=== PATIENT | female | born 1970 | race Caucasian/White ===

== ENCOUNTER 2017-03-01 18:04 | Emergency (ER) | payer OTHER ==
[~2017-03-01] VITALS: Ht 162.6 cm; Wt 86.2 kg
[2017-03-01 19:00] VITALS: BP 123/77
--- NOTE | 2017-03-01 19:25 | PHYS DOC ---
Past Medical History Past Medical History: Other Additional Past Medical Histor: Raynauds Past Surgical History: Appendectomy, , Other Additional Past Surgical Histo: Intestinal surgery Alcohol Use: None Drug Use: None Adult General Chief Complaint Chief Complaint: LACERATION/AVULSION [facility] HPI Patient is a 46 year old pleasant female who was cooking using a informaticist and avulsed some skin radial aspect of her left thumb. She attempted direct pressure was for the last 60 minutes with not improving in the bleeding. He also complained of increasing of a throbbing pain is gotten progressively worsened. She denied any dizziness nausea or near syncopal event.. She denies any bleeding dyscrasias or prior bleeding issues. Review of Systems Review of Systems Constitutional: Denies fever or chills [] Cardiovascular: No additional information not addressed in HPI [] GI: Denies abdominal pain, nausea, vomiting Musculoskeletal: Denies back pain or joint pain [] Integument: Denies rash or skin lesions [] Neurologic: Denies headache, focal weakness or sensory changes [] Current Medications Current Medications Current Medications Medications (Trade) Dose Ordered Sig/Lory Start Time Stop Time Status Last Admin Dose Admin Acetaminophen/ Hydrocodone Bitart (Lortab 5/325) 2 tab 1X ONCE 03/01/17 19:30 03/01/17 19:31 DC 03/01/17 19:54 2 TAB Gelatin (Gelfoam Size 100) 1 each 1X ONCE 03/01/17 19:30 03/01/17 19:31 DC 03/01/17 19:54 1 EACH Allergies Allergies Allergies Coded Allergies Type Severity Reaction Last Updated Verified aspirin Allergy Mild VOMITING 02/13/14 Yes Physical Exam Physical Exam Vital signs reviewed within normal limits Constitutional: Well developed, well nourished, no acute distress, non-toxic appearance. [] Patient is uncomfortable holding her thumb in her hand with direct pressure Cardiovascular:Heart rate regular rhythm, no murmur [] Lungs & Thorax: Bilateral breath sounds clear to auscultation [] Skin: Warm, dry, no erythema, no rash. [] Back: No tenderness, no CVA tenderness. [] Extremities: No tenderness, no cyanosis, no clubbing, ROM intact, no edema. Small avulsion injury noted on the radial aspect of the left thumb measuring 1 cm by half centimeter in width and length actively bleeding. No foreign body noted no laceration to repair Neurologic: Alert and oriented X 3, normal motor function, normal sensory function, no focal deficits noted. [] Psychologic: Affect normal, judgement normal, mood normal. This patient is anxious Current Patient Data Vital Signs Vital Signs Date Time Temp Pulse Resp B/P (MAP) Pulse Ox O2 Delivery O2 Flow Rate FiO2 03/01/17 19:54 20 98 Room Air 03/01/17 19:00 98.2 94 98.2 EKG EKG [] Radiology/Procedures Radiology/Procedures [] Course & Med Decision Making Course & Med Decision Making Pertinent Labs and Imaging studies reviewed. (See chart for details) [] Patient is pleasant but has a bleeding avulsion injury to the radial aspect of the thumb that was bleeding upon arrival. It was dressed with Gelfoam, a pressure dressing and direct pressure which did reduce the pain bleeding. Patient has no foreign body, no laceration to repair. Patient provided Gelfoam as well as pain medications to go home. Asked to follow-up with her primary care doctor next 12-24 hours for wound check bleeding still continued. Impression: Avulsion injury skin disposition: To her primary care doctor for when necessary care. Precautions given for infection and bleeding Dragon Disclaimer Dragon Disclaimer This electronic medical record was generated, in whole or in part, using a voice recognition dictation system. Departure Departure Impression: Primary Impression: Avulsion, skin Disposition: 01 HOME, SELF-CARE Condition: IMPROVED Referrals: SHERRY ALMARAZ DO (PCP) Patient Instructions: Finger Avulsion, Wound Care, [id number] Additional Instructions: Asked to return for any signs of infection or difficulty controlling bleeding with direct pressure or bandages provided. ELIO JENKINS MD Mar 01, 2017 19:25
[2017-03-01] MEDS ORDERED: HYDROcodone/APAP 5/325MG 1 TAB TABLET PO ONE (19:30)
[2017-03-01] MEDS ORDERED: GELATIN SPONGE SIZE 100. TP ONE (19:30)
== END 2017-03-01 20:15 | disposition home or self-care (01) ==
LOC: ER 18:04
DX: S61.102A Unspecified open wound of left thumb with damage to nail, initial encounter (principal); X58.XXXA Exposure to other specified factors, initial encounter; Y93.89 Activity, other specified; Y92.89 Other specified places as the place of occurrence of the external cause; Y99.8 Other external cause status
CPT/HCPCS: 99283

== ENCOUNTER 2018-06-19 10:55 | Emergency (ER) | payer BC ==
[~2018-06-19] VITALS: Ht 165.1 cm; Wt 86.2 kg
[2018-06-19] MEDS ORDERED: IV NORMAL SALINE 1000ML BAG 1,000 ML IV ONE (11:30)
[2018-06-19 11:41] LABS: BASO % 1 % (0-3); EOS # 0.1 x10^3/uL (0.0-0.7); EOS % 2 % (0-3); HEMATOCRIT 38.4 % (36.0-47.0); HEMOGLOBIN 13.4 g/dL (12.0-15.5); LYMPH # 1.9 x10^3/uL (1.0-4.8); LYMPH % 28 % (24-48); MEAN CORPUSCULAR HEMOGLOBIN 32 pg (25-35); MEAN CORPUSCULAR HGB CONC 35 g/dL (31-37); MEAN CORPUSCULAR VOLUME 92 fL (79-100); MONO # 0.5 x10^3/uL (0.0-1.1); MONO % 8 % (0-9); NEUT # 4.3 x10^3uL (1.8-7.7); NEUT % 62 % (31-73); PLATELET COUNT 286 x10^3/uL (140-400); RED BLOOD COUNT 4.18 x10^6/uL (3.50-5.40); RED CELL DISTRIBUTION WIDTH 14.5 % (11.5-14.5); WHITE BLOOD COUNT 6.9 x10^3/uL (4.0-11.0)
[2018-06-19] MEDS ORDERED: MECLIZINE HCL 12.5 MG TABLET. PO ONE (11:45)
[2018-06-19 11:51] LABS: CALCIUM 9.4 mg/dL (8.5-10.1); CREATININE 0.9 mg/dL (0.6-1.0); GFR 66.8; POTASSIUM 3.8 mmol/L (3.5-5.1)
--- NOTE | 2018-06-19 11:57 | PHYS DOC ---
Past Medical History Past Medical History: Other Additional Past Medical Histor: Raynauds Past Surgical History: Appendectomy, , Other Additional Past Surgical Histo: Intestinal surgery Alcohol Use: None Drug Use: None Adult General Chief Complaint Chief Complaint: DIZZY/LIGHT HEADED HPI HPI 47-year-old female presenting the emergency department today with a dizziness and spinning of the room started about an hour ago. She was working when this happened. She denies any facial droop, difficulty speaking, difficulty walking or unilateral numbness weakness or tingling. Patient reports a chronically asymmetric face, but demonstrates good strength in the frontal muscles of the face and is able to close her eyes with good strength. She reports she has bilateral blurred vision. She reports normally she wears glasses but unfortunately a dog ate her glasses. She reports right leg pain without swelling or erythema. She also developed chest pain over the past 3-4 hours that is a sharp mild intermittent pain that comes and goes. She denies history of high blood pressure high cholesterol. She denies diabetes. She denies smoking. She denies hemoptysis or recent immobilization or surgery. Review of systems is negative for abdominal pain nausea vomiting fevers chills diaphoresis. All other review of systems is negative unless otherwise noted in history of present illness. 47-year-old female presenting to the emergency department today with dizziness chest pain and unilateral leg swelling and blurred vision. On arrival she is afebrile with normal heart rate. Saturating well on room air. Blood pressure. On examination she has good strength in all extremities. She has a chronic asymmetry of the face but demonstrates no weakness of the face. Otherwise cranial nerves are intact. Regular rate and rhythm. Abdomen is soft and nontender. The legs are bilateral and appearance. There is no erythema. Mild tenderness of the calf. Otherwise unremarkable. EKG obtained and reviewed by myself shows sinus rhythm with a regular rate. ST segments congruent. Not suggestive of ACS. Ultrasound of the legs ordered along with d-dimer and blood work. Head CT ordered as well. Workup is unremarkable. The patient has been examined and was not found to have an emergency medical condition. The patient was then discharged home in stable condition to follow up with their primary care physician over the next 2-3 days. They were to return if their symptoms worsened or if they were concerned for any reason. They were also instructed to return to the emergency department if they were unable to get the recommended and appropriate follow-up. [id number] discharge instructions and return precautions were given. Patient's questions were answered to their satisfaction. Patient is comfortable with plan. HEART SCORE History Slightly suspicious 0 Moderately suspicious +1 Highly suspicious +2 EKG 1 point: No ST depression but LBBB, LVH, repolarization changes (ex: digoxin); 2 points: ST depression/elevation not due to LBBB, LVH, or digoxin Normal 0 Non-specific repolarization disturbance +[address] depression +2 Age <45 0 45-65 +1 65 +2 Risk factors Risk factors: HTN, hypercholesterolemia, DM, obesity (BMI >30 kg/m), smoking (current, or smoking cessation 3 mo), positive family history (parent or sibling with CVD before age 65); atherosclerotic disease: prior [place], PCI/CABG, CVA/TIA, or peripheral arterial disease No known risk factors 0 1-2 risk factors +1 3 risk factors or history of atherosclerotic disease +2 Initial troponin Use local assays and corresponding cutoffs normal limit 0 1-2 normal limit +1 >2 normal limit +2 Total 1 point Review of Systems Review of Systems SEE ABOVE. Current Medications Current Medications Current Medications Medications (Trade) Dose Ordered Sig/Lory Start Time Stop Time Status Last Admin Dose Admin Meclizine HCl (Antivert) 25 mg 1X ONCE 06/19/18 11:45 06/19/18 11:46 DC 06/19/18 11:55 25 MG Sodium Chloride 1,000 ml @ 1,000 mls/hr 1X ONCE 06/19/18 11:30 06/19/18 12:29 DC 06/19/18 11:35 1,000 MLS/HR Allergies Allergies Allergies Coded Allergies Type Severity Reaction Last Updated Verified aspirin Allergy Mild VOMITING 02/13/14 Yes Physical Exam Physical Exam SEE ABOVE Constitutional: Well developed, well nourished, no acute distress, non-toxic appearance. [] HENT: Normocephalic, atraumatic, bilateral external ears normal, oropharynx moist, no oral exudates, nose normal. [] Eyes: PERRLA, EOMI, conjunctiva normal, no discharge. [] Neck: Normal range of motion, no tenderness, supple, no stridor. [] Cardiovascular:Heart rate regular rhythm, no murmur [] Lungs & Thorax: Bilateral breath sounds clear to auscultation [] Abdomen: Bowel sounds normal, soft, no tenderness, no masses, no pulsatile masses. [] Skin: Warm, dry, no erythema, no rash. [] Back: No tenderness, no CVA tenderness. [] Extremities: No tenderness, no cyanosis, no clubbing, ROM intact, no edema. [] Neurologic: Mental status: Awake oriented and alert x3 Cranial nerves: Extraocular movements intact, eyebrows tonia bilaterally, smile symmetric, uvula elevation nl, shoulder shrug intact bilaterally, tongue protrusion normal DTRs: 2+ Sensation: equal and normal in all extremities Strength: 5/5 in upper and lower extremities bilaterally Psychologic: Affect normal, judgement normal, mood normal. [] Current Patient Data Vital Signs Vital Signs Date Time Temp Pulse Resp B/P (MAP) Pulse Ox O2 Delivery O2 Flow Rate FiO2 06/19/18 11:20 98.3 81 16 135/68 (90) 98 Room Air 98.3 Lab Values Laboratory Tests Test 06/19/18 11:30 06/19/18 12:30 06/19/18 13:02 White Blood Count 6.9 x10^3/uL (4.0-11.0) Red Blood Count 4.18 x10^6/uL (3.50-5.40) Hemoglobin 13.4 g/dL (12.0-15.5) Hematocrit 38.4 % (36.0-47.0) Mean Corpuscular Volume 92 fL (79-100) Mean Corpuscular Hemoglobin 32 pg (25-35) Mean Corpuscular Hemoglobin Concent 35 g/dL (31-37) Red Cell Distribution Width 14.5 % (11.5-14.5) Platelet Count 286 x10^3/uL (140-400) Neutrophils (%) (Auto) 62 % (31-73) Lymphocytes (%) (Auto) 28 % (24-48) Monocytes (%) (Auto) 8 % (0-9) Eosinophils (%) (Auto) 2 % (0-3) Basophils (%) (Auto) 1 % (0-3) Neutrophils # (Auto) 4.3 x10^3uL (1.8-7.7) Lymphocytes # (Auto) 1.9 x10^3/uL (1.0-4.8) Monocytes # (Auto) 0.5 x10^3/uL (0.0-1.1) Eosinophils # (Auto) 0.1 x10^3/uL (0.0-0.7) Basophils # (Auto) 0.0 x10^3/uL (0.0-0.2) D-Dimer (Zoila) 0.34 ug/mlFEU (0.00-0.50) Sodium Level 141 mmol/L (136-145) Potassium Level 3.8 mmol/L (3.5-5.1) Chloride Level 104 mmol/L (98-107) Carbon Dioxide Level 29 mmol/L (21-32) Anion Gap 8 (6-14) Blood Urea Nitrogen 9 mg/dL (7-20) Creatinine 0.9 mg/dL (0.6-1.0) Estimated GFR (Cockcroft-Gault) 66.8 BUN/Creatinine Ratio 10 (6-20) Glucose Level 132 mg/dL (70-99) H Calcium Level 9.4 mg/dL (8.5-10.1) Total Bilirubin 0.2 mg/dL (0.2-1.0) Aspartate Amino Transferase (AST) 18 U/L (15-37) Alanine Aminotransferase (ALT) 23 U/L (14-59) Alkaline Phosphatase 87 U/L (46-116) Troponin I Quantitative < 0.017 ng/mL (0.000-0.055) Total Protein 7.7 g/dL (6.4-8.2) Albumin 3.7 g/dL (3.4-5.0) Albumin/Globulin Ratio 0.9 (1.0-1.7) L Urine Collection Type Unknown Urine Color Yellow Urine Clarity Clear Urine pH 5.5 Urine Specific [place] <=1.005 Urine Protein Negative mg/dL (NEG-TRACE) Urine Glucose (UA) Negative mg/dL (NEG) Urine Ketones (Stick) Negative mg/dL (NEG) Urine Blood Small (NEG) Urine Nitrite Negative (NEG) Urine Bilirubin Negative (NEG) Urine Urobilinogen Dipstick 0.2 mg/dL (0.2 mg/dL) Urine Leukocyte Esterase Moderate (NEG) Urine RBC 3-5 /HPF (0-2) Urine WBC >40 /HPF (0-4) Urine Squamous Epithelial Cells Mod /LPF Urine Bacteria Many /HPF (0-FEW) POC Urine HCG, Qualitative Hcg negative (Negative) Laboratory Tests 06/19/18 11:30 Laboratory Tests 06/19/18 11:30 EKG EKG [] Radiology/Procedures Radiology/Procedures [] Course & Med Decision Making Course & Med Decision Making Pertinent Labs and Imaging studies reviewed. (See chart for details) [] Dragon Disclaimer Dragon Disclaimer This electronic medical record was generated, in whole or in part, using a voice recognition dictation system. Departure Departure Impression: Primary Impression: Chest pain Additional Impressions: Leg pain Lightheaded Disposition: HOME, SELF-CARE Condition: STABLE Referrals: SHERRY ALMARAZ DO (PCP) Patient Instructions: Dizziness Additional Instructions: Thank you for allowing us to participate in your care today. Return to the emergency department you have any new or worsening symptoms, or if you are concerned for any reason. Return to emergency department if you have any new or concerning symptoms including but not limited to fever, chills, nausea, vomiting, intractable pain, any new rashes, chest pain, shortness of air , uncontrolled bleeding, difficulty breathing, and/or vision loss. Follow up with your primary care physician within 3 days. Call your Primary Doctor tomorrow and inform them of your visit today. If you do not have a primary care provider we are happy to provide you with a list of our primary care providers contact information. This condition should be evaluated by your primary care physician and any recommended consulting services for continued management within 2-3 days after discharge. If at any time, you are having difficulty getting into your primary care doctor or a specialist, return to the emergency department. Problem Qualifiers LEAH CERVANTES MD Jun 19, 2018 11:57
[2018-06-19 11:58] LABS: ALBUMIN 3.7 g/dL (3.4-5.0); ALBUMIN/GLOBULIN RATIO 0.9 (1.0-1.7); TOTAL BILIRUBIN 0.2 mg/dL (0.2-1.0); TOTAL PROTEIN 7.7 g/dL (6.4-8.2)
--- NOTE | 2018-06-19 12:34 | RAD ---
EXAM: Bilateral lower extremity venous Doppler sonogram. HISTORY: Pain and swelling. TECHNIQUE: Tian scale and color Doppler sonographic evaluation of the bilateral lower extremity veins with spectral waveform analysis was performed. FINDINGS: There is normal color flow, normal compressibility and there are normal spectral waveforms in the common femoral, superficial femoral, popliteal, posterior tibial and greater saphenous veins. IMPRESSION: No Doppler evidence of lower extremity deep venous thrombosis. Electronically signed by: Radha Cha MD (06/19/2018 12:30 PM) [place] [id number]
--- NOTE | 2018-06-19 12:42 | RAD ---
EXAM: Head CT without contrast. HISTORY: Dizziness when turning head. TECHNIQUE: Computed tomographic images of the head were obtained without contrast. *One or more of the following individualized dose reduction techniques were utilized for this examination: 1. Automated exposure control. 2. Adjustment of the mA and/or kV according to patient size. 3. Use of iterative reconstruction technique. COMPARISON: None. FINDINGS: There is no acute or subacute extra-axial or intraparenchymal hemorrhage. There is no mass effect or midline shift. There is no hydrocephalus. The mcbride-white matter differentiation pattern is intact. There is moderate ethmoid and mild maxillary sinus mucosal thickening with suspected small maxillary sinus mucous retention cysts. The mastoid air cells are clear. There is a tiny benign osseous excrescence along the inner table of the right frontal bone. There is no suspicious osseous lesion. IMPRESSION: No acute intracranial findings. Electronically signed by: Radha Cha MD (06/19/2018 12:39 PM) [id number]
[2018-06-19 13:11] LABS: BILIRUBIN,URINE NEGATIVE (NEG); CLARITY,URINE CLEAR; COLOR,URINE YELLOW; NITRITE,URINE NEGATIVE (NEG); PH,URINE 5.5; PROTEIN,URINE NEGATIVE (NEG-TRACE); UROBILINOGEN,URINE 0.2 mg/dL (0.2 mg/dL)
[2018-06-19 13:34] VITALS: BP 95/62
[2018-06-19 13:35] LABS: BACTERIA,URINE MANY /HPF (0-FEW); SQUAMOUS EPITHELIAL CELL,UR MOD /LPF; WBC,URINE >40 /HPF (0-4)
--- NOTE | 2018-06-19 14:18 | EKG ---
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
== END 2018-06-19 14:00 | disposition home or self-care (01) ==
LOC: ER 10:55
DX: R42 Dizziness and giddiness (principal); R07.89 Other chest pain; H53.8 Other visual disturbances; M79.604 Pain in right leg; Z90.89 Acquired absence of other organs; Z98.890 Other specified postprocedural states; Z88.6 Allergy status to analgesic agent
CPT/HCPCS: 36415; 70450; 80053; 81001; 81025; 84484; 85025; 85379; 87086; 93005; 93970; 96360; 99285; J7030; J8597; 87186

== ENCOUNTER 2021-11-09 13:52 | Emergency (ER) | payer BC ==
[~2021-11-09] VITALS: Ht 165.1 cm; Wt 80.0 kg
[2021-11-09] MEDS ORDERED: KETOROLAC 15 MG/ML VIAL. IVP ONE (14:15)
[2021-11-09 14:21] LABS: BASO % 0 % (0-3); EOS # 0.2 x10^3/uL (0.0-0.7); EOS % 2 % (0-3); HEMATOCRIT 36.8 % (36.0-47.0); HEMOGLOBIN 12.1 g/dL (12.0-15.5); LYMPH # 2.8 x10^3/uL (1.0-4.8); LYMPH % 35 % (24-48); MEAN CORPUSCULAR HEMOGLOBIN 30 pg (25-35); MEAN CORPUSCULAR HGB CONC 33 g/dL (31-37); MEAN CORPUSCULAR VOLUME 92 fL (79-100); MONO # 0.7 x10^3/uL (0.0-1.1); MONO % 8 % (0-9); NEUT # 4.5 x10^3/uL (1.8-7.7); NEUT % 55 % (31-73); PLATELET COUNT 309 x10^3/uL (140-400); RED BLOOD COUNT 3.99 x10^6/uL (3.50-5.40); RED CELL DISTRIBUTION WIDTH 14.8 % (11.5-14.5); WHITE BLOOD COUNT 8.2 x10^3/uL (4.0-11.0)
--- NOTE | 2021-11-09 14:32 | RAD ---
EXAM: Chest, single view. HISTORY: Chest pain. COMPARISON: None. FINDINGS: A frontal view of the chest obtained. There is no infiltrate, pleural effusion or pneumotho rax. The heart is normal in size. IMPRESSION: No acute pulmonary finding. Electronically signed by: Radha Cha MD (11/09/2021 2:30 PM) [id number]
[2021-11-09 14:34] LABS: CREATININE 0.8 mg/dL (0.6-1.0); GFR 75.3; POTASSIUM 4.4 mmol/L (3.5-5.1)
[2021-11-09 14:39] LABS: ALBUMIN 3.6 g/dL (3.4-5.0); ALBUMIN/GLOBULIN RATIO 0.9 (1.0-1.7); MAGNESIUM 2.1 mg/dL (1.8-2.4); TOTAL BILIRUBIN 0.4 mg/dL (0.2-1.0); TOTAL PROTEIN 7.6 g/dL (6.4-8.2)
--- NOTE | 2021-11-09 14:53 | PHYS DOC ---
Past Medical History Past Medical History: Other Additional Past Medical Histor: Raynauds Past Surgical History: Additional Past Surgical Histo: Intestinal surgery Smoking Status: Never Smoker Alcohol Use: None Drug Use: None General Adult EDM: Chief Complaint: CHEST PAIN HPI: HPI: Patient is a 51 year old female who presents with central low chest pain that began 10 minutes prior to calling EMS. Patient reports her pain is a constant 6/10 that has intermittent waves of 8/10 pain that is sharp in nature and nonradiating. Patient denies all exacerbating and remitting factors. She does not report any associated symptoms. Patient states she has had almost identical symptoms in the past, few years ago. At that time, she was told that she was having muscle spasms. Patient denies palpitations, edema, pleuritic pain, cough, shortness of breath. Review of Systems: Review of Systems: Constitutional: Denies fever, chills or generalized weakness Eyes: Denies change in visual acuity, visual field deficits or discharge HENT: Denies ear pain, nasal congestion or sore throat Respiratory: See HPI Cardiovascular: See HPI GI: Denies abdominal pain, nausea, vomiting, acidic/foul taste, belching, bloody stools or diarrhea : Denies dysuria or hematuria Musculoskeletal: Denies back pain or joint pain Integument: Denies rash or other skin lesion Neurologic: Denies headache, focal weakness or sensory changes Heart Score: C/O Chest Pain: Yes HEART Score for Chest Pain: HEART Score for Chest Pain Response (Comments) Value History Slighlty/Non-Suspicious 0 ECG Normal 0 Age >45 - < 65 1 Risk Factors No Risk Factors 0 Troponin < Normal Limit 0 Total 1 Risk Factors: Risk Factors: Risk Scores: Score 0 - 3: 2.5% MACE over next 6 weeks - Discharge Home Score 4 - 6: 20.3% MACE over next 6 weeks - Admit for Clinical Observation Score 7 - 10: 72.7% MACE over next 6 weeks - Early Invasive Strategies Current Medications: Current Medications Medications (Trade) Dose Ordered Sig/Lory Start Time Stop Time Status Last Admin Dose Admin Ketorolac Tromethamine (Toradol 15mg Vial) 15 mg 1X ONCE 11/09/21 14:15 11/09/21 14:16 DC 11/09/21 14:15 15 MG Allergies: Allergies: Allergies Coded Allergies Type Severity Reaction Last Updated Verified aspirin Allergy Mild VOMITING 11/09/21 Yes Physical Exam: PE: Constitutional: Well developed, well nourished, non-toxic appearance, patient is somewhat tearful. HENT: Normocephalic, atraumatic, bilateral external ears normal, nose normal. Eyes: EOMI, conjunctiva normal, no discharge. Neck: Normal range of motion, no stridor. Cardiovascular: Heart rate regular rhythm, no murmur. Lungs & Thorax: Bilateral breath sounds clear to auscultation, reproducible low sternal thoracic pain on palpation, no crepitus. Skin: Warm, dry, no erythema, no rash. Extremities: No tenderness, no cyanosis, no clubbing, ROM intact, no edema. Neurologic: Alert and oriented x4, motor and sensory function grossly intact, no focal deficits noted. Current Patient Data: Labs: Laboratory Tests Test 11/09/21 13:55 11/09/21 16:47 11/09/21 17:15 White Blood Count 8.2 x10^3/uL (4.0-11.0) Red Blood Count 3.99 x10^6/uL (3.50-5.40) Hemoglobin 12.1 g/dL (12.0-15.5) Hematocrit 36.8 % (36.0-47.0) Mean Corpuscular Volume 92 fL (79-100) Mean Corpuscular Hemoglobin 30 pg (25-35) Mean Corpuscular Hemoglobin Concent 33 g/dL (31-37) Red Cell Distribution Width 14.8 % (11.5-14.5) Platelet Count 309 x10^3/uL (140-400) Neutrophils (%) (Auto) 55 % (31-73) Lymphocytes (%) (Auto) 35 % (24-48) Monocytes (%) (Auto) 8 % (0-9) Eosinophils (%) (Auto) 2 % (0-3) Basophils (%) (Auto) 0 % (0-3) Neutrophils # (Auto) 4.5 x10^3/uL (1.8-7.7) Lymphocytes # (Auto) 2.8 x10^3/uL (1.0-4.8) Monocytes # (Auto) 0.7 x10^3/uL (0.0-1.1) Eosinophils # (Auto) 0.2 x10^3/uL (0.0-0.7) Basophils # (Auto) 0.0 x10^3/uL (0.0-0.2) D-Dimer (Zoila) 0.39 ug/mlFEU (0.00-0.50) Sodium Level 144 mmol/L (136-145) Potassium Level 4.4 mmol/L (3.5-5.1) Chloride Level 107 mmol/L (98-107) Carbon Dioxide Level 25 mmol/L (21-32) Anion Gap 12 (6-14) Blood Urea Nitrogen 15 mg/dL (7-20) Creatinine 0.8 mg/dL (0.6-1.0) Estimated GFR (Cockcroft-Gault) 75.3 BUN/Creatinine Ratio 19 (6-20) Glucose Level 120 mg/dL (70-99) Calcium Level 9.0 mg/dL (8.5-10.1) Magnesium Level 2.1 mg/dL (1.8-2.4) Total Bilirubin 0.4 mg/dL (0.2-1.0) Aspartate Amino Transf (AST/SGOT) 21 U/L (15-37) Alanine Aminotransferase (ALT/SGPT) 26 U/L (14-59) Alkaline Phosphatase 75 U/L (46-116) Troponin I High Sensitivity 8 ng/L (4-50) 4 ng/L (4-50) Total Protein 7.6 g/dL (6.4-8.2) Albumin 3.6 g/dL (3.4-5.0) Albumin/Globulin Ratio 0.9 (1.0-1.7) Lipase 125 U/L (73-393) Urine Collection Type Unknown Urine Color Yellow Urine Clarity Clear Urine pH 8.0 (<5.0-8.0) Urine Specific [place] 1.010 (1.000-1.030) Urine Protein Negative mg/dL (NEG-TRACE) Urine Glucose (UA) Negative mg/dL (NEG) Urine Ketones (Stick) Negative mg/dL (NEG) Urine Blood Negative (NEG) Urine Nitrite Positive (NEG) Urine Bilirubin Negative (NEG) Urine Urobilinogen Dipstick 0.2 mg/dL (0.2 mg/dL) Urine Leukocyte Esterase Trace (NEG) Urine RBC 0 /HPF (0-2) Urine WBC Occ /HPF (0-4) Urine Squamous Epithelial Cells Few /LPF Urine Bacteria Many /HPF (0-FEW) Urine Opiates Screen Neg (NEG) Urine Methadone Screen Neg (NEG) Urine Barbiturates Neg (NEG) Urine Phencyclidine Screen Neg (NEG) Urine Amphetamine/Methamphetamine Neg (NEG) Urine Benzodiazepines Screen Neg (NEG) Urine Cocaine Screen Neg (NEG) Urine Cannabinoids Screen Neg (NEG) Urine Ethyl Alcohol Neg (NEG) Laboratory Tests 11/09/21 13:55 Laboratory Tests 11/09/21 13:55 Vital Signs: Vital Signs Date Time Temp Pulse Resp B/P (MAP) Pulse Ox O2 Delivery O2 Flow Rate FiO2 11/09/21 13:57 97.5 76 14 111/63 (79) 97 Room Air 97.5 EKG: EKG: EKG Interpreted by Dr. Garcia: Regular rate and rhythm 74 bpm with no ectopic beats. QT 378 ms/QTc 420 ms. No STEMI. Radiology/Procedures: Radiology/Procedures: PROCEDURE: PORTABLE CHEST 1V EXAM: Chest, single view. HISTORY: Chest pain. COMPARISON: None. FINDINGS: A frontal view of the chest obtained. There is no infiltrate, pleural effusion or pneumothorax. The heart is normal in size. IMPRESSION: No acute pulmonary finding. Electronically signed by: Radha Cha MD (11/09/2021 2:30 PM) [id number] Course & Med Decision Making: Course & Med Decision Making Pertinent Labs and Imaging studies reviewed. (See chart for details) Patient is a 51-year-old female without cardiac history who presents with chest pain. Evaluation will consist of labs that include troponin, EKG, chest x-ray, urinalysis. Patient's significant other did come into the room to stay with her. Patient appeared to be anxious and was provided with p.o. hydroxyzine. Urinalysis shows evidence of UTI. Patient will be treated with Keflex. Otherwise, work-up is unremarkable. Patient will be discharged home with instruction to follow-up with her primary care provider. Patient understands and is agreeable to discharge plan. Dragon Disclaimer: Dragon Disclaimer: This electronic medical record was generated, in whole or in part, using a voice recognition dictation system. Departure Departure Impression: Primary Impression: Chest wall tenderness Additional Impressions: Anxiety about health Urinary tract infection Qualified Codes: N30.00 - Acute cystitis without hematuria Disposition: HOME / SELF CARE / HOMELESS Condition: STABLE Referrals: SHERRY ALMARAZ DO (PCP) Patient Instructions: Anxiety and Panic Attacks, [id number], Chest Wall Pain, [id number] Additional Instructions: EMERGENCY DEPARTMENT GENERAL DISCHARGE INSTRUCTIONS Thank you for coming to [facility] Emergency Department (ED) nohemy gallardo and trusting us with you care. We trust that you had a positive experience in our Emergency Department. If you wish to speak to the department management, you may call the director at . YOUR FOLLOW UP INSTRUCTIONS ARE FOLLOWS: 1. Follow up with your primary care doctor. If you do not have a primary doctor, please ask for a resource list of physicians or clinics that may be able to assist you with follow up care. 2. The emergency provider has interpreted your imaging studies, if any were ordered. The radiology project/production manager imaging also reviewed them. If there is a change in the findings, you will be notified in 48 hours when at all possible. 3. If a lab test or culture has been done, your results will be reviewed and you will be notified if you need a change in treatment. 4. Follow instructions verbalized to you and refer to the printouts if needed. ADDITIONAL INSTRUCTIONS AND INFORMATION: 1. Your care today has been supervised by a physician who is specially trained in emergency care. Many problems require more than one evaluation for a complete diagnosis and treatment. We recommend that you schedule your follow up appointment as recommended to ensure complete treatment of you illness or injury. If you are unable to obtain follow up care and continue to have a problem, or if your condition worsens, we recommend that you return to the ED. 2. We are not able to safely determine your condition over the phone nor are we able to give sound medical advice over the phone. For these safety reasons, if you call for medical advice we will ask you to come to the ED for further evaluation. 3. If you have any questions regarding these discharge instructions please call the ED at . SAFETY INFORMATION: In the interest of safety, wellness, and injury prevention; we encourage you to wear your seat belt, if you smoke; quite smoking, and we encourage family to use a protective helmet for bicycling and other sporting events that present an increased risk for head injury. IF YOUR SYMPTOMS WORSEN OR NEW SYMPTOMS DEVELOP, OR YOU HAVE CONCERNS ABOUT YOUR CONDITION; OR IF YOUR CONDITION WORSENS WHILE YOU ARE WAITING FOR YOUR FOLLOW UP APPOINTMENT; EITHER CONTACT YOUR PRIMARY CARE DOCTOR, THE PHYSICIAN WHOSE NAME AND NUMBER YOU WERE GIVEN, OR RETURN TO THE ED IMMEDIATELY. Scripts Cephalexin (KEFLEX) 500 Mg Capsule 1 CAP PO BID for 7 Days, #14 CAP Prov: PARVIZ CORONEL 11/09/21 PARVIZ CORONEL Nov 09, 2021 14:53
[2021-11-09] MEDS ORDERED: hydrOXYzine 25 MG TABLET ONE (16:20)
[2021-11-09] MEDS ORDERED: hydrOXYzine 25 MG TABLET PO PRN (16:30)
[2021-11-09 17:28] LABS: BILIRUBIN,URINE NEGATIVE (NEG); CLARITY,URINE CLEAR; COLOR,URINE YELLOW; NITRITE,URINE POSITIVE (NEG); PROTEIN,URINE NEGATIVE (NEG-TRACE); UROBILINOGEN,URINE 0.2 mg/dL (0.2 mg/dL)
[2021-11-09 17:29] LABS: BACTERIA,URINE MANY /HPF (0-FEW); RBC,URINE 0 /HPF (0-2); WBC,URINE OCC /HPF (0-4)
[2021-11-09 17:31] LABS: BARBITURATES NEG (NEG); BENZODIAZEPINES NEG (NEG); CANNABINOIDS NEG (NEG); COCAINE NEG (NEG); METHADONE NEG (NEG); OPIATES NEG (NEG); PHENCYCLIDINE NEG (NEG)
[2021-11-09 17:35] LABS: AMPHETAMINE/METHAMPHETAMINE NEG (NEG)
[2021-11-09] MEDS ORDERED: CEPH500C PO (17:39)
[2021-11-09 18:00] VITALS: BP 118/71
--- NOTE | 2021-11-10 02:28 | EKG ---
[facility] [address] [place] [address] Test Date: 2021-11-09 Test Time: 13:59:31 Pat Name: ANUPAMA CARRILLO Department: Room: Gender: F [employer]: : 1970 Requested By: PARVIZ CORONEL Order Number: [id number] Reading MD: Arnol Rizo MD Measurements Intervals [place] Rate: 74 P: 34 GA: 142 QRS: 63 QRSD: 92 T: 52 QT: 378 QTc: 420 Interpretive Statements SINUS RHYTHM Electronically Signed On 11-12-2021 8:28:05 DATA ARCHITECT by Arnol Rizo MD
== END 2021-11-09 18:00 | disposition home or self-care (01) ==
LOC: ER 13:52
DX: N30.00 Acute cystitis without hematuria (principal); R07.89 Other chest pain; F41.9 Anxiety disorder, unspecified; Z88.6 Allergy status to analgesic agent
CPT/HCPCS: 36415; 71045; 80053; 80307; 81001; 83690; 83735; 84484; 85025; 85379; 87086; 93005; 96374; 99285; J1885; 87077; 87186